=== PATIENT | female | born 1950 | race Caucasian/White ===

== ENCOUNTER → 2016-09-06 | Outpatient (CLI) | payer MEDICARE ==
[~2016-09-06] MED LIST: ALBUTEROL MININEB INH; AMLODIPINE BESYL5 MG PO; AZITHROMYCIN250 MG PO; DOXYCYCLINE HY100 M3 PO; HYDROCODON-ACE1 EAC9 PO; K-DUR20 ME1 DOB; LEXAPRO20 MG DOB; PREDNISONE5 M1 DOB; SPIRIVA18 MCG INH; SYMBICORT 80/46.9 G1 INH
--- NOTE | ~2016-09-06 | CR150 ---
[facility] A Service of [facility] RADIOLOGY TEXT RESULTS PATIENT: JUHI FLORES LOCATION: [facility] : 54 UNIT #: [id number] AGE: [address]: Selwyn Shelley SEX: F ORDER DR: [id number] [facility] [address] [place], [place] [address] [id number] O MR#: [id number] Acc #: [id number] NAME: JUHI FLORES : 1950 SEX: F STUDY DATE/TIME: 09/06/2016 10:07 UNIT: [facility] ROOM: STUDY DESCRIPTION: CR Hip Min 2 Views Lt Attending Physician: Selwyn Shelley Referring Physician: Selwyn Shelley Ordering Physician: Salvatore Shelley Pa-C Primary Care Physician: Selwyn Shelley MEDICAL IMAGING REPORT This report is preliminary unless electronic signature is present EXAM Left hip 09/06/2016. [facility] HISTORY 66-year-old woman pain left hip. Symptoms past [id number] weeks. Fall 6 months ago. COMPARISON Left hip views 04/22/2014 AP pelvis with frog-leg lateral view of the left hip demonstrates preservation of the hip joint with no degenerative narrowing and no marginal osteophyte formation. There is some generalized demineralization but no fracture or dislocation. The bony pelvis is intact. Mild degenerative findings left sacroiliac joint. Lower lumbar hardware partially imaged. IMPRESSION Negative left hip. Mild degenerative response left sacroiliac joint. Previous lumbar fusion with a partially imaged lumbar hardware. Dictated by... Chris Heaton M.D. THIS IS AN ELECTRONICALLY VERIFIED REPORT Chris Heaton M.D. at 09/06/2016 2:17 PM YAHAIRA/jay TD: 09/06/2016 14:08 JOB #: [id number] MEDICAL IMAGING REPORT [facility] A Service of [facility] RADIOLOGY TEXT RESULTS PATIENT: JUHI FLORES LOCATION: [facility] : 54 UNIT #: [id number] AGE: [address]: Selwyn Shelley SEX: F ORDER DR: Page 1 of 1 COPY
--- NOTE | ~2016-09-06 | CR212 ---
[facility] A Service of [facility] RADIOLOGY TEXT RESULTS PATIENT: JUHI FLORES LOCATION: [facility] : 54 UNIT #: [id number] AGE: [address]: Selwyn Shelley SEX: F ORDER DR: [id number] [facility] [address] [place], [place] [address] [id number] O MR#: [id number] Acc #: [id number] NAME: JUHI FLORES : 1950 SEX: F STUDY DATE/TIME: 09/06/2016 10:08 UNIT: [facility] ROOM: STUDY DESCRIPTION: CR Ribs Unilateral 2 View Lt Attending Physician: Selwyn Shelley Referring Physician: Selwyn Shelley Ordering Physician: Selwyn Shelley Primary Care Physician: Selwyn Shelley MEDICAL IMAGING REPORT This report is preliminary unless electronic signature is present EXAM Left rib series. INDICATIONS 66-year-old female with pain under left lower anterior ribs for 2-3 weeks. COMPARISON No comparisons. FINDINGS AP and oblique views were obtained. No evidence of displaced rib fracture. Lung peraza are clear. Heart size normal. Postop changes of the spine. IMPRESSION No evidence of displaced rib fracture. Dictated by... Young Mohamud M.D. THIS IS AN ELECTRONICALLY VERIFIED REPORT Young Mohamud M.D. at 09/07/2016 9:08 AM SUYAPA/andres TD: 09/06/2016 14:23 JOB #: [id number] MEDICAL IMAGING REPORT Page 1 of 1 COPY
--- NOTE | ~2016-09-06 | US6 ---
[facility] A Service of [facility] & [facility] RADIOLOGY TEXT RESULTS PATIENT: JUHI FLORES LOCATION: [facility] : 54 UNIT #: [id number] AGE: [address]: Selwyn Shelley SEX: F ORDER DR: [id number] [facility] [address]. [place], [place] [address] [id number] O MR#: [id number] Acc #: [id number] NAME: JUHI FLORES : 1950 SEX: F STUDY DATE/TIME: 09/06/2016 10:58 UNIT: [facility] ROOM: STUDY DESCRIPTION: US Abdominal Limited Attending Physician: Salvatore Shelley Pa-C Referring Physician: Salvatore Shelley Pa-C Ordering Physician: Salvatore Shelley Pa-C Primary Care Physician: Salvatore Shelley Pa-C MEDICAL IMAGING REPORT This report is preliminary unless electronic signature is present EXAM Left upper quadrant ultrasound, 09/06/2016. HISTORY Left upper quadrant abdominal pain, fullness, and tenderness for 1 month with no known injury. FINDINGS The spleen measures 8.2 cm x 2.6 cm x approximately 3 cm and is homogeneous in echotexture, demonstrating no cystic or solid mass lesions. Color flow Doppler images show normal blood flow throughout the spleen. The left kidney measured 9.8 cm in longitudinal dimensions and demonstrated no evidence of hydronephrosis or nephrolithiasis. No cystic or solid mass lesions were seen on the left kidney. IMPRESSION Negative left upper quadrant ultrasound. Dictated by... Max Ramos M.D. THIS IS AN ELECTRONICALLY VERIFIED REPORT Max Ramos M.D. at 09/07/2016 8:21 AM SWETA/graham TD: 09/06/2016 16:01 JOB #: [id number] MEDICAL IMAGING REPORT Page 1 of 1 COPY
== END | disposition home or self-care (01) ==
LOC: CRAD 09:46
DX: R10.12 Left upper quadrant pain (principal); R07.81 Pleurodynia; M25.552 Pain in left hip; Z98.1 Arthrodesis status
CPT/HCPCS: 71100; 73502; 76705